=== PATIENT | female | born 2005 | race Caucasian/White ===

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

== ENCOUNTER 2023-12-06 16:39 | Emergency (ER) | payer OTHER, BC ==
[2023-12-06 17:01] VITALS: RESP 18; TEMP 98.8
--- NOTE | 2023-12-06 17:17 | ED ---
General Adult HPI - General Chief complaint: Headache Stated complaint: [facility] injury Time Seen by Provider: 12/06/23 16:53 Source: patient, RN notes reviewed Mode of arrival: ambulatory Limitations: no limitations - History of Present Illness Initial comments: This is a 18-year-old female with no significant past medical history presents emergency department with complaint of headache following a head injury that occurred yesterday while she was at work. 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 She denies loss of consciousness at this event or subsequent falls. She denies feelings of nausea or vomiting, states that she has been experiencing intermittent headache all day. She denies blurry vision, double vision, tinnitus, acute neurological deficits. She denies current use of blood thinners. - Related Data Home Medications Medication Instructions Recorded Confirmed EPINEPHrine (Auto Inject) [Epipen] 0.3 mg IM ONCE PRN 07/22/21 07/22/21 Fexofenadine/Pseudoephedrine 1 tab PO DAILY 07/22/21 07/22/21 [Autumn-D 12 Hour Tablet] norgestimate-ethinyl estradioL 1 tab PO HS 07/22/21 07/22/21 [[id number] Tablet] Previous Rx's Medication Instructions Recorded Ibuprofen [Motrin] 600 mg PO Q8HR PRN #30 tab 07/22/21 Allergies Allergy/AdvReac Type Severity Reaction Status Date / Time cat dander Allergy Unknown Verified 12/06/23 16:52 dog dander Allergy Unknown Verified 12/06/23 16:52 milk Allergy Unknown Verified 12/06/23 16:52 soy Allergy Unknown Verified 12/06/23 16:52 Review of Systems ROS Statement: Those systems with pertinent positive or pertinent negative responses have been documented in the HPI. ROS Other: All systems not noted in ROS Statement are negative. Past Medical History Past Medical History: No Reported History History of Any Multi-Drug Resistant Organisms: None Reported Past Surgical History: No Surgical Hx Reported Past Psychological History: No Psychological Hx Reported Smoking Status: Never smoker Past Alcohol Use History: None Reported Past Drug Use History: None Reported General Exam Limitations: no limitations General appearance: alert, in no apparent distress Head exam: Present: other (mild hematoma measuing rougly 3 cm over the right anterior scalp, no erythema or laceration present) Eye exam: Present: normal appearance, PERRL, EOMI. Absent: scleral icterus, conjunctival injection, periorbital swelling ENT exam: Present: normal exam, mucous membranes moist Neck exam: Present: normal inspection. Absent: tenderness, meningismus, lymphadenopathy Respiratory exam: Present: normal lung sounds bilaterally. Absent: respiratory distress, wheezes, rales, rhonchi, stridor Cardiovascular Exam: Present: regular rate, normal rhythm, normal heart sounds. Absent: systolic murmur, diastolic murmur, rubs, gallop, clicks GI/Abdominal exam: Present: soft, normal bowel sounds. Absent: distended, tenderness, guarding, rebound, rigid Extremities exam: Present: normal inspection, full ROM, normal capillary refill. Absent: tenderness, pedal edema, joint swelling, calf tenderness Back exam: Present: normal inspection Neurological exam: Present: alert, oriented X3, CN II-XII intact Psychiatric exam: Present: normal affect, normal mood Skin exam: Present: warm, dry, intact, normal color. Absent: rash Course Vital Signs 12/06/23 12/06/23 16:48 18:17 Temperature 98.8 F Pulse Rate 84 82 Respiratory 18 18 Rate Blood Pressure 127/70 122/71 O2 Sat by Pulse 99 97 Oximetry Medical Decision Making - Medical Decision Making Was pt. sent in by a medical professional or institution ([facility], REPLANTER, urgent care, hospital, or half-way...) When possible be specific @ -No Did you speak to anyone other than the patient for history (EMS, parent, family, police, friend...)? What history was obtained from this source @ -No Did you review nursing and triage notes (agree or disagree)? Why? @ -I reviewed and agree with nursing and triage notes Were old charts reviewed (outside hosp., previous admission, EMS record, old EKG, old radiological studies, urgent care reports/EKG's, half-way records)? Report findings @ -No old charts were reviewed Differential Diagnosis (chest pain, altered mental status, abdominal pain women, abdominal pain men, vaginal bleeding, weakness, fever, dyspnea, syncope, headache, dizziness, GI bleed, back pain, seizure, CVA, palpatations, mental health, musculoskeletal)? @ -Headache, minor head trauma, concussion, hematoma, this list is not all inclusive. EKG interpreted by me (3pts min.). @ -None X-rays interpreted by me (1pt min.). @ -None done CT interpreted by me (1pt min.). @ -None done U/S interpreted by me (1pt. min.). @ -None done What testing was considered but not performed or refused? (CT, X-rays, U/S, labs)? Why? @ -Such as CT was considered but deferred at this time due to patient having a CSF 15, no loss of conscious and no event or acting with altered mental status. Patient is agreement this plan. What meds were considered but not given or refused? Why? @ -None Did you discuss the management of the patient with other professionals (professionals i.e. , PA, REPLANTER, lab, RT, psych nurse, social worker delinquency prevention, director pediatric, teacher, transit authority police officer, upper caser)? Give summary @ -No Was smoking cessation discussed for >3mins.? @ -No Was critical care preformed (if so, how long)? @ -No Were there social determinants of health that impacted care today? How? (Homelessness, low income, unemployed, alcoholism, drug addiction, transportation, low edu. Level, literacy, decrease access to med. care, intermediate, rehab)? @ -No Was there de-escalation of care discussed even if they declined (Discuss DNR or withdrawal of care, Hospice)? DNR status @ -No What co-morbidities impacted this encounter? (DM, HTN, Smoking, COPD, CAD, Cancer, CVA, ARF, Chemo, Hep., AIDS, mental health diagnosis, sleep apnea, morbid obesity)? @ -None Was patient admitted / discharged? Hospital course, mention meds given and route, prescriptions, significant lab abnormalities, going to OR and other pertinent info. @ -18-year-old female with a head injury. On examination patient noted to have a mild hematoma over the right scalp measuring roughly 2 cm. The area is not erythematous with no signs of laceration or ecchymosis present. Additionally neurovascular there are no deficits. Additionally, patient states that, but there was no loss of consciousness or feelings of nausea or vomiting. Yolis with patient at bedside imaging is deferred at this time due to minimal clinical concern for potential of a brain bleed and or vomiting of the skull. Patient is in agreement with this. Strict return parameters discussed with the patient. Discussed care for concussion. She was provided with a work note. Additionally, on work note screening patient left urine sample for drug screening. Undiagnosed new problem with uncertain prognosis? @ -No Drug Therapy requiring intensive monitoring for toxicity (Heparin, Nitro, Insulin, Cardizem)? @ -No Were any procedures done? @ -No Diagnosis/symptom? @ -Minor head trauma, hematoma, concussion Acute, or Chronic, or Acute on Chronic? @ -Acute Uncomplicated (without systemic symptoms) or Complicated (systemic symptoms)? @ -Uncomplicated Side effects of treatment? @ -No Exacerbation, Progression, or Severe Exacerbation? @ -No Poses a threat to life or bodily function? How? (Chest pain, [place], [place], pneumonia, PE, COPD, DKA, ARF, appy, cholecystitis, CVA, Diverticulitis, Homicidal, Suicidal, threat to staff... and all critical care pts) @ -Unlikely Disposition Clinical Impression: Minor head trauma, Headache, Concussion Narrative: Please return to the Emergency Department if symptoms worsen or any other concerns. Disposition: HOME SELF-CARE Condition: Good Instructions (If sedation given, give patient instructions): Concussion (ED) Is patient prescribed a controlled substance at d/c from ED?: No Referrals: Darius Santiago DO [Primary Care Provider] - 1-2 days Time of Disposition: 17:19
[2023-12-06 18:33] VITALS: BP 122/71; PULSE 82
== END 2023-12-06 18:18 | disposition home or self-care (01) ==
LOC: EC 16:39
DX: S00.93XA Contusion of unspecified part of head, initial encounter (principal); Z91.011 Allergy to milk products; Z91.018 Allergy to other foods; Z88.8 Allergy status to other drugs, medicaments and biological substances; W18.30XA Fall on same level, unspecified, initial encounter
CPT/HCPCS: 99283

== ENCOUNTER → 2023-12-07 | Outpatient (CLI) | payer OTHER ==
--- NOTE | 2023-12-07 14:58 | CT ---
EXAMINATION TYPE: CT brain wo con DATE OF EXAM: 12/07/2023 COMPARISON: None HISTORY: POSTCONCUSSIONAL SYNDROME/ headache CT DLP: 1074.[address] of the brain was performed. The ventricles, basal cisterns and sulci overlying the cerebral convexities demonstrate a normal appe arance. There is no evidence for intracranial hemorrhage or sulcal effacement. No mass effects are seen. Osseous calvarium is intact. If symptoms persist consider MRI as clinically warranted. IMPRESSION: 1. No acute intracranial process is seen at this time.
== END | disposition home or self-care (01) ==
LOC: RADCTMAIN 14:29
PROVIDERS: ATTEND Emergency Medicine
DX: S00.83XA Contusion of other part of head, initial encounter (principal); F07.81 Postconcussional syndrome; R51.9 Headache, unspecified; X58.XXXA Exposure to other specified factors, initial encounter
CPT/HCPCS: 70450

== ENCOUNTER 2024-06-10 10:15 | Emergency (ER) | payer BC ==
[2024-06-10 10:20] VITALS: RESP 18
--- NOTE | 2024-06-10 10:21 | ED ---
Upper Extremity HPI - General Chief Complaint: Extremity Injury, Upper Stated Complaint: finger injury Time Seen by Provider: 06/10/24 10:21 Source: patient, RN notes reviewed Mode of arrival: ambulatory Limitations: no limitations - History of Present Illness Initial Comments: This is a 18-year-old female presenting to the emergency department chief com plaint of right hand injury/pain. States that approximately 08 30 this morning she was in her kitchen when she excellently tripped over her dog and went to brace herself and fell onto her right hand. Patient denies hitting her head or loss conscious time of the injury. Denies other injuries at the time of the complaint. Patient has full range of motion and is complaining of pain over the first and second digits. Denies previous surgeries to the hand. Has not taken any medication since the injury. - Related Data Home Medications Medication Instructions Recorded Confirmed EPINEPHrine (Auto Inject) [Epipen] 0.3 mg IM ONCE PRN 07/22/21 07/22/21 Fexofenadine/Pseudoephedrine 1 tab PO DAILY 07/22/21 07/22/21 [Autumn-D 12 Hour Tablet] norgestimate-ethinyl estradioL 1 tab PO HS 07/22/21 07/22/21 [[id number]-Ur-Ivjgsaxw Tablet] Previous Rx's Medication Instructions Recorded Ibuprofen [Motrin] 600 mg PO Q8HR PRN #30 tab 07/22/21 Allergies Allergy/AdvReac Type Severity Reaction Status Date / Time cat dander Allergy Unknown Verified 06/10/24 10:20 dog dander Allergy Unknown Verified 06/10/24 10:20 milk Allergy Unknown Verified 06/10/24 10:20 soy Allergy Unknown Verified 06/10/24 10:20 Review of Systems ROS Statement: Those systems with pertinent positive or pertinent negative responses have been documented in the HPI. ROS Other: All systems not noted in ROS Statement are negative. Past Medical History Past Medical History: No Reported History History of Any Multi-Drug Resistant Organisms: None Reported Past Surgical History: No Surgical Hx Reported Past Psychological History: No Psychological Hx Reported Smoking Status: Never smoker Past Alcohol Use History: None Reported Past Drug Use History: None Reported General Exam Limitations: no limitations General appearance: alert, in no apparent distress ENT exam: Present: normal exam, mucous membranes moist Neck exam: Present: normal inspection. Absent: tenderness, meningismus, lymphadenopathy Respiratory exam: Present: normal lung sounds bilaterally. Absent: respiratory distress, wheezes, rales, rhonchi, stridor Cardiovascular Exam: Present: regular rate, normal rhythm, normal heart sounds. Absent: systolic murmur, diastolic murmur, rubs, gallop, clicks GI/Abdominal exam: Present: soft, normal bowel sounds. Absent: distended, tenderness, guarding, rebound, rigid Right Forearm Wrist exam: Present: normal inspection, full ROM. Absent: tenderness, swelling, ecchymosis, deformity Hand Wrist exam: Present: full ROM, tenderness (ventral first metacarpal region), swelling. Absent: deformity, dislocation Neuro motor exam: Present: wrist extension intact, thumb opposition intact, thumb IP flexion intact, thumb adduction intact Vascular: Present: normal capillary refill, radial pulse (2+). Absent: vascular compromise Back exam: Present: normal inspection Neurological exam: Present: alert, oriented X3, CN II-XII intact Course Vital Signs 06/10/24 10:18 Temperature 98 F Pulse Rate 95 Respiratory 18 Rate Blood Pressure 124/85 O2 Sat by Pulse 99 Oximetry Medical Decision Making - Medical Decision Making Was pt. sent in by a medical professional or institution ([facility], [facility], urgent care, hospital, or custodial...) When possible be specific @ -No Did you speak to anyone other than the patient for history (EMS, parent, family, police, friend...)? What history was obtained from this source @ -No Did you review nursing and triage notes (agree or disagree)? Why? @ -I reviewed and agree with nursing and triage notes Were old charts reviewed (outside hosp., previous admission, EMS record, old EKG, old radiological studies, urgent care reports/EKG's, custodial records)? Report findings @ -No old charts were reviewed Differential Diagnosis (chest pain, altered mental status, abdominal pain women, abdominal pain men, vaginal bleeding, weakness, fever, dyspnea, syncope, headache, dizziness, GI bleed, back pain, seizure, CVA, palpatations, mental health, musculoskeletal)? @ -Differential Musculoskeletal Muscular strain, contusion, ligament sprain, fracture, arthritis, septic arthritis, bursitis, cellulitis, muscle spasm, nerve compression, DVT, arterial occlusion, herpes zoster, electrolyte abnormality, tumor.... This is not meant to be in all inclusive list EKG interpreted by me (3pts min.). @ -None X-rays interpreted by me (1pt min.). @ -X-ray of the right hand reveals no acute fracture or dislocation CT interpreted by me (1pt min.). @ -None done U/S interpreted by me (1pt. min.). @ -None done What testing was considered but not performed or refused? (CT, X-rays, U/S, labs)? Why? @ -None What meds were considered but not given or refused? Why? @ -None Did you discuss the management of the patient with other professionals (professionals i.e. Dr., PA, ROAD ENGINEER [facility]REIGHT, lab, RT, psych nurse, social services, vocational services specialist, teacher, workplace rehabilitation officer, family preservation caseworker)? Give summary @ -No Was smoking cessation discussed for >3mins.? @ -No Was critical care preformed (if so, how long)? @ -No Were there social determinants of health that impacted care today? How? (Homelessness, low income, unemployed, alcoholism, drug addiction, transportat ion, low edu. Level, literacy, decrease access to med. care, residential, rehab)? @ -No Was there de-escalation of care discussed even if they declined (Discuss DNR or withdrawal of care, Hospice)? DNR status @ -No What co-morbidities impacted this encounter? (DM, HTN, Smoking, COPD, CAD, Cancer, CVA, ARF, Chemo, Hep., AIDS, mental health diagnosis, sleep apnea, morbid obesity)? @ -None Was patient admitted / discharged? Hospital course, mention meds given and route, prescriptions, significant lab abnormalities, going to OR and other pertinent info. @ -Discharge. 18-year-old female with right hand injury. On evaluation patient noted to have mild tenderness palpation over the ventral first and second metacarpals with mild edema. There is no crepitus or deformity noted. Patient is neurovascularly intact. She is provided with dose of Motrin and ice pack pending x-ray imaging. xr negative for acute process. patient is provided with an RICCI wrap and instructed to continue rest, ice, elevate, and use Tylenol and Motrin as needed for pain. discussed with Dr. Tyson Undiagnosed new problem with uncertain prognosis? @ -No Drug Therapy requiring intensive monitoring for toxicity (Heparin, Nitro, Insulin, Cardizem)? @ -No Were any procedures done? @ -No Diagnosis/symptom? @ -hand sprain Acute, or Chronic, or Acute on Chronic? @ -acute Uncomplicated (without systemic symptoms) or Complicated (systemic symptoms)? @ -uncomplicated Side effects of treatment? @ -No Exacerbation, Progression, or Severe Exacerbation? @ -No Poses a threat to life or bodily function? How? (Chest pain, [place], [place], pneumonia, PE, COPD, DKA, ARF, appy, cholecystitis, CVA, Diverticulitis, Homicidal, Suicidal, threat to staff... and all critical care pts) @ -No Disposition Clinical Impression: Hand sprain Disposition: HOME SELF-CARE Condition: Good Instructions (If sedation given, give patient instructions): Hand Sprain (ED) Additional Instructions: Please return to the Emergency Department if symptoms worsen or any other concerns. Continue to wear Ricci wrap and rest, ice, elevate and use Tylenol/Motrin as needed Is patient prescribed a controlled substance at d/c from ED?: No Referrals: Darius Santiago DO [Primary Care Provider] - 1-2 days Time of Disposition: 10:58
[2024-06-10] MEDS: IBUPROFEN 800 MG TAB PO STA (10:27)
--- NOTE | 2024-06-10 10:38 | XR ---
EXAMINATION TYPE: XR hand complete RT DATE OF EXAM: 06/10/2024 10:34 AM COMPARISON: None. CLINICAL INDICATION: Female, 18 years old with history of fall, injury, pain, pain TECHNIQUE: XR hand complete RT views were obtained. FINDINGS: There is no acute fracture/dislocation evident. The joint spaces appear within normal limits. The ov erlying soft tissue appears unremarkable. IMPRESSION: No acute fracture or dislocation. [facility], , 06/10/2024 10:36 AM
[2024-06-10 11:12] VITALS: BP 118/76; PULSE 96; TEMP 98.1
== END 2024-06-10 11:13 | disposition home or self-care (01) ==
LOC: EC 10:15
DX: S63.91XA Sprain of unspecified part of right wrist and hand, initial encounter (principal); Z91.011 Allergy to milk products; Z91.048 Other nonmedicinal substance allergy status; Z91.018 Allergy to other foods; W01.0XXA Fall on same level from slipping, tripping and stumbling without subsequent striking against object, initial encounter
CPT/HCPCS: 99283